=== PATIENT | male | born 1935 | race Caucasian/White ===

== ENCOUNTER 2018-01-20 20:03 | Inpatient (IN) | payer MEDICARE ==
[~2018-01-20] VITALS: Ht 177.8 cm; Wt 74.6 kg
[2018-01-20] MEDS ORDERED: SODIUM CHLORIDE 0.9% 1000ML 1,000 ML IV STA (20:43)
[2018-01-20] MEDS ORDERED: ACETAMINOPHEN 325 MG TAB PO ONE (20:45)
[2018-01-20 21:00] LABS: BASOPHILS % 0.3 % (0.0-1.0); EOSINOPHILS # (AUTO) 0.1 (0.0-0.4); EOSINOPHILS % 0.7 % (0.0-6.0); HEMATOCRIT 32.5 % (38.2-49.6); HEMOGLOBIN 10.8 g/dL (14.0-18.0); LYMPHOCYTES # (AUTO) 0.6 (1.0-3.2); LYMPHOCYTES % 8.2 % (18.0-39.1); MEAN CORPUSCULAR HEMOGLOBIN 30.9 pg (28-32); MEAN CORPUSCULAR HGB CONC 33.2 g/dL (31-35); MEAN CORPUSCULAR VOLUME 93.1 fL (81-99); MONOCYTES # (AUTO) 0.3 (0.2-0.8); NEUTROPHILS # (AUTO) 6.1 (2.1-6.9); NEUTROPHILS % 86.5 % (38.7-80.0); PLATELET COUNT 102 x10e3/uL (140-360); RED BLOOD COUNT 3.49 x10e6/uL (4.3-5.7); RED CELL DISTRIBUTION WIDTH 13.3 % (11.7-14.4)
[2018-01-20 21:11] LABS: INR 1.09; PROTHROMBIN TIME 15.1 seconds (11.9-14.5)
[2018-01-20 21:12] LABS: PARTIAL THROMBOPLASTIN TIME 33.5 seconds (23.8-35.5)
[2018-01-20 21:18] LABS: ALBUMIN 4.2 g/dL (3.5-5.0); ALBUMIN/GLOBULIN RATIO 1.5 (0.8-2.0); ANION GAP 15.2 mmol/L (8-16); CALCIUM 10.1 mg/dL (8.4-10.2); CREATININE, SERUM 1.81 mg/dL (0.72-1.25); POTASSIUM 4.2 mmol/L (3.5-5.1)
[2018-01-20 22:30] LABS: CLARITY,URINE HAZY (CLEAR); COLOR,URINE RED (YELLOW)
[2018-01-20] MEDS ORDERED: CEFTRIAXONE SOD 1 GM VIAL IV ONE (22:30)
[2018-01-20 22:31] LABS: KETONES,URINE NEGATIVE (NEGATIVE); LEUKOCYTE ESTERASE ,URINE TRACE (NEGATIVE); NITRITE,URINE NEGATIVE (NEGATIVE); PROTEIN,URINE DIPSTICK 3+ (NEGATIVE)
[2018-01-20 22:32] LABS: BACTERIA,URINE FEW /HPF; BILIRUBIN,URINE NEGATIVE (NEGATIVE); EPITHELIAL CELLS,URINE FEW /LPF; RBC,URINE >50 /HPF (0-5); URINE UROBILINOGEN 0.2 mg/dL (0.2 - 1)
--- NOTE | 2018-01-20 23:28 | Diagnostic Imaging Report ---
EXAM: CT Abdomen and Pelvis WITHOUT contrast INDICATION: Hematuria COMPARISON: None. TECHNIQUE: Abdomen and pelvis were scanned utilizing a multidetector helical scanner from the lung base to the pubic symphysis without administration of IV contrast. Absence of intravenous contrast decreases sensitivity for detection of focal lesions and vascular pathology. Coronal and sagittal reformations were obtained. Stone protocol is performed. IV CONTRAST: None. ORAL CONTRAST: Water RADIATION DOSE: Total DLP: 344.27 mGy*cm Estimated effective dose: (DLP x 0.015 x size factor) mSv COMPLICATIONS: None FINDINGS: LINES and TUBES: None. LOWER THORAX: Mild centrilobular emphysema noted. HEPATOBILIARY: No focal hepatic lesions. No biliary ductal dilation. GALLBLADDER: No radio-opaque stones or sludge. No wall thickening. SPLEEN: Moderate splenomegaly. PANCREAS: No focal masses or ductal dilatation. ADRENALS: No adrenal nodules KIDNEYS/URETERS: No hydronephrosis. No cystic or solid mass lesions. No stones. GI TRACT: No abnormal distention, wall thickening, or evidence of bowel obstruction. There are diverticula within the colon without evidence of diverticulitis. Appendix is not clearly identified. There is however no fat stranding or adenopathy in the right lower quadrant to suggest appendicitis. PELVIC ORGANS/BLADDER: There is severe prostatomegaly with size measuring 10.6 x 0.7 x 7 cm with severe mass effect on the bladder trigone. The bladder contains at least one right lateral diverticulum with evidence of hyper densities within the diverticulum and left lateral dependent portion of the bladder suggestive of blood products LYMPH NODES: No lymphadenopathy. VESSELS: There is mild atherosclerotic disease in the aorta and major arterial branches. PERITONEUM / RETROPERITONEUM: No free air or fluid. BONES: There are degenerative changes in the lumbar spine. SOFT TISSUES: Small fat and small bowel containing right indirect inguinal hernia. IMPRESSION: 1. Severe prostatomegaly with evidence of blood products in the urinary bladder. 2. Moderate in size right bladder diverticulum measuring 4.3 cm in maximum dimension. 3. Diverticulosis without evidence of diverticulitis of the sigmoid colon. 4. Splenomegaly. 5. Mild emphysema. 6. Small bowel and fat containing right indirect inguinal hernia Signed by: Dr. Dm Santos M.D. on 01/20/2018 11:24 PM
[2018-01-21] MEDS ORDERED: LOSARTAN POTASS50 MG PO (00:07)
[2018-01-21] MEDS ORDERED: ELIQUIS PO (00:07)
[2018-01-21] MEDS ORDERED: ATENOLOL50 MG PO (00:07)
[2018-01-21] MEDS ORDERED: FUROSEMIDE20 MG PO (00:07)
[2018-01-21] MEDS ORDERED: TAMSULOSIN HCL0.4 MG PO (00:07)
[2018-01-21] MEDS ORDERED: ATORVASTATIN CA20 MG PO (00:07)
[2018-01-21] MEDS ORDERED: AVODART0.5 MG PO (00:07)
[2018-01-21] MEDS ORDERED: ONDANSETRON HCL INJ 2 MG/ML VIAL IV PRN (00:45)
[2018-01-21] MEDS ORDERED: SODIUM CHLORIDE 0.9% 1000ML 1,000 ML IV ONE (00:45)
[2018-01-21] MEDS ORDERED: ASPIR 8181 MG PO (00:47)
[2018-01-21] MEDS: ACETAMINOPHEN 1000 MG/100 ML IV PRN ×2 (06:06→17:46)
[2018-01-21 06:20] LABS: BASOPHILS % 0.1 % (0.0-1.0); LYMPHOCYTES # (AUTO) 0.5 (1.0-3.2); LYMPHOCYTES % 6.8 % (18.0-39.1); MEAN CORPUSCULAR HEMOGLOBIN 31.2 pg (28-32); MEAN CORPUSCULAR HGB CONC 33.3 g/dL (31-35); MEAN CORPUSCULAR VOLUME 93.5 fL (81-99); MONOCYTES # (AUTO) 0.2 (0.2-0.8); MONOCYTES % 3.1 % (4.4-11.3); NEUTROPHILS % 89.7 % (38.7-80.0); PLATELET COUNT 95 x10e3/uL (140-360); RED BLOOD COUNT 3.21 x10e6/uL (4.3-5.7); RED CELL DISTRIBUTION WIDTH 13.3 % (11.7-14.4)
[2018-01-21 06:45] LABS: ALBUMIN 3.6 g/dL (3.5-5.0); ALBUMIN/GLOBULIN RATIO 1.4 (0.8-2.0); ANION GAP 13.2 mmol/L (8-16); CALCIUM 9.4 mg/dL (8.4-10.2); CREATININE, SERUM 1.62 mg/dL (0.72-1.25); POTASSIUM 4.2 mmol/L (3.5-5.1)
[2018-01-21 09:30] LABS: LYMPHOCYTES % (MANUAL) 4 % (19-48); MONOCYTES % (MANUAL) 2 % (3.4-9.0); NEUTROPHILS % (MANUAL) 94 % (40-74); PLATELET ESTIMATE MODERATELY DECREASED; PLATELET MORPHOLOGY COMMENT NORMAL; RBC MORPHOLOGY COMMENT NORMAL
[2018-01-21] MEDS: CEFTRIAXONE SOD 1 GM VIAL IV SCH ×2 (11:34→21:55)
--- OUTSIDE RECORDS SUMMARY | 2018-01-21 14:26 | XMS REPORT | Clinical Summary ---
Author Author TOMA [facility]fireBo[facility] CenterZartis [facility] HospitalPercelloWashington [facility] Address Unknown Phone Unavailable Care Team Providers Care Employment Case Manager Name Role Phone PCP Unavailable Allergies No Known Allergies Current Medications Prescription Sig. Disp. Refills Start End Date Status Date amiodarone (PACERONE) 200 Take 200 mg by mouth 2 Active MG tablet (two) times daily. apixaban (ELIQUIS) 2.5 mg Take 2.5 mg by mouth 2 Active Tab tablet (two) times daily. aspirin 81 MG EC tablet Take 81 mg by mouth Active daily. atenolol (TENORMIN) 50 MG Take 50 mg by mouth 2 Active tablet (two) times daily. atorvastatin (LIPITOR) 20 Take 20 mg by mouth Active MG tablet daily. azelastine (ASTELIN) 137 2 sprays by Nasal route 2 Active mcg (0.1 %) nasal spray (two) times daily Use in each nostril as directed . dutasteride (AVODART) 0.5 Take 0.5 mg by mouth Active mg capsule daily. fluticasone (FLONASE) 50 2 sprays by Nasal route Active mcg/actuation nasal spray daily. losartan (COZAAR) 50 MG Take 50 mg by mouth 2 Active tablet (two) times daily. multivitamin per tablet Take 1 tablet by mouth Active daily. 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 -- [facility] -- 07/01/2017 Encounters Date Type Specialty Care Team Description [facility] after 01[facility]19[facility]2017 Social History Tobacco Use Types Packs/Day Years Used Date Never Smoker Smokeless Tobacco: Never Used Alcohol Use Drinks/Week oz/Week Comments No Sex Assigned at Date Recorded Not on file Last Filed Vital Signs Vital Sign Reading Time Taken Blood Pressure 178/72 07/01/2017 10:00 AM CDT Pulse 44 07/01/2017 10:00 AM CDT Temperature 37.1 C (98.7 F) 07/01/2017 7:18 AM CDT Respiratory Rate 16 07/01/2017 10:00 AM CDT Oxygen Saturation 100% 07/01/2017 9:31 AM CDT Inhaled Oxygen - - Concentration Weight 78 kg (172 lb) 07/01/2017 7:18 AM CDT Height 180.3 cm (5' 11") 07/01/2017 7:18 AM CDT Body Mass Index 23.99 07/01/2017 7:18 AM CDT Plan of Treatment Not on file Results * EKG-SCANNED (07/02/2017 3:10 PM) * RHYTHM STRIP - SCAN (07/02/2017 3:10 PM) * ECG 12 lead (07/01/2017 9:04 AM) Specimen Performing Laboratory GE MUSE Narrative Ventricular Rate 39 BPM Atrial Rate 39 BPM P-R Interval 212 ms QRS Duration 94 ms Q-T Interval 522 ms QTC Calculation(Bazett) 420 ms P [place] 105 degrees R [place] 75 degrees T [place] 55 degrees Marked sinus bradycardia with 1st degree A-V block with Premature atrial complexes T wave inversion in V1-V2, may indicate postischemic changes Abnormal ECG When compared with ECG of 13-DEC-2003 02:46, Premature atrial complexes are now Present Non-specific change in ST segment in Anterior leads T waves are now negative in V2 QT has shortened Confirmed by MD NANDO, COLLEEN ([id number]) on 07/02/2017 6:55:17 AM Procedure Note Interface, External Ris In - 07/02/2017 6:55 AM CDT Ventricular Rate 39 BPM Atrial Rate 39 BPM P-R Interval 212 ms QRS Duration 94 ms Q-T Interval 522 ms QTC Calculation(Bazett) 420 ms P [place] 105 degrees R [place] 75 degrees T [place] 55 degrees Marked sinus bradycardia with 1st degree A-V block with Premature atrial complexes T wave inversion in V1-V2, may indicate postischemic changes Abnormal ECG When compared with ECG of 13-DEC-2003 02:46, Premature atrial complexes are now Present Non-specific change in ST segment in Anterior leads T waves are now negative in V2 QT has shortened Confirmed by MD NANDO, COLLEEN ([id number]) on 07/02/2017 6:55:17 AM after 01/19/2017
--- OUTSIDE RECORDS SUMMARY | 2018-01-21 14:29 | XMS REPORT | Clinical Summary ---
Author Author TOMA [facility]licationVal[facility]WePo[facility] Address Unknown Phone Unavailable Care Team Providers Care Candy Vendor Name Role Phone PCP Unavailable Allergies No [...] persistent atrial fibrillation-flutter to sinus bradycardia -- [facility] -- 07/01/2017 Encounters Date Type Specialty Care Team Description [facility] after 01/20/2017 Social History Tobacco Use Types Packs/Day Years [...] 522 ms QTC Calculation(Bazett) 420 ms P [place] 105 degrees R [place] 75 degrees T [place] 55 degrees Marked sinus bradycardia with 1st [...] 522 ms QTC Calculation(Bazett) 420 ms P [place] 105 degrees R [place] 75 degrees T [place] 55 degrees Marked sinus bradycardia with 1st [...] COLLEEN ([id number]) on 07/02/2017 6:55:17 AM after 01/20/2017
--- OUTSIDE RECORDS SUMMARY | 2018-01-21 14:29 | XMS REPORT ---
Author Author [facility] Address Unknown Phone Unavailable Care Team Providers Care Bushel Worker Name Role Phone Amanda SANCHES Unavailable Unavailable Problems This patient has no known problems. Allergies, Adverse Reactions, Alerts This patient has no known allergies or adverse reactions. Medications This patient has no known medications. Results Test Description Test Time Test Comments Text Results Atomic Results Result Comments CT ABDOMEN/PELVIS WO 2018-01-20 23:18:00 [place] [address] Patient Name: LUIS HARRIS JR MR #: [id number] : 1935 Age/Sex: 82/M Req #: [id number] Adm Physician: Ordered by: MONO JUÁREZ Report #: [id number] Location: ER Room/Bed: Procedure: [id number] CT/CT ABDOMEN/PELVIS WO Exam Date: 01/20/18 Exam Time: 6 REPORT STATUS: Signed EXAM: CT Abdomen and Pelvis WITHOUT contrast INDICATION: Hematuria COMPARISON: None. TECHNIQUE: Abdomen and pelvis were scanned utilizing a multidetector helical scanner from the lung base to the pubic symphysis without administration of IV contrast. Absence of intravenous contrast decreases sensitivity for detection of focal lesions and vascular pathology. Coronal and sagittal reformations were obtained. Stone protocol is performed. IV CONTRAST: None. ORAL CONTRAST: Water RADIATION DOSE: Total DLP: 344.27 mGy*cm Estimated effective dose: (DLP x 0.015 x size factor) mSv COMPLICATIONS: None FINDINGS: LINES and TUBES: None. LOWER THORAX: Mild centrilobular emphysema noted. HEPATOBILIARY: No focal hepatic lesions. No biliary d uctal dilation. GALLBLADDER: No radio-opaque stones or sludge. No wall thickening. SPLEEN: Moderate splenomegaly. PANCREAS: No focal masses or ductal dilatation. ADRENALS: No adrenal nodules KIDNEYS/URETERS: No hydronephrosis. No cystic or solid mass lesions. No stones. GI TRACT: No abnormal distention, wall thickening, or evidence of bowel obstruction. There are diverticula within the colon without evidence of diverticulitis. Appendix is not clearly identified. There is however no fat stranding or adenopathy in the right lower quadrant to suggest appendicitis. PELVIC ORGANS/BLADDER: There is severe prostatomegaly with size measuring 10.6 x 0.7 x 7 cm with severe mass effect on the bladder trigone. The bladder contains at least one right lateral diverticulum with evidence of hyper densities within the diverticulum and left lateral dependent portion of the bladder suggestive of blood products LYMPH NODES: No lymphadenopathy. VESSELS: There is mild atherosclerotic disease in the aorta and major arterial branches. PERITONEUM / RETROPERITONEUM: No free air or fluid. BONES: There are degenerative changes in the lumbar spine. SOFT TISSUES: Small fat and small bowel containing right indirect inguinal hernia. IMPRESSION: 1. Severe prostatomegaly with evidence of blood products in the urinary bladder. 2. Moderate in size right bladder diverticulum measuring 4.3 cm in maximum dimension. 3. Diverticulosis without evidence of diverticulitis of the sigmoid colon. 4. Splenomegaly. 5. Mild emphysema. 6. Small bowel and fat containing right indirect inguinal hernia Signed by: Dr. Dm Santos M.D. on 01/20/2018 11:24 PM Dictated By: DM MULLIGAN MD 23 Transcribed By: JULIANNE on 01/20/18 COPY TO: MONO JUÁREZ
[2018-01-21 16:00] VITALS: BP 151/64
[2018-01-21 16:55] VITALS: BP 151/64
[2018-01-21 17:00] VITALS: BP 151/64
[2018-01-21 20:38] VITALS: BP 127/60
[2018-01-21] MEDS: ATORVASTATIN 20 MG TAB PO SCH (21:55)
[2018-01-21 23:40] VITALS: BP 134/61
[2018-01-22] VITALS (7 sets, daily range): BP systolic 114–157; BP diastolic 54–67
[2018-01-22 05:58] LABS: BASOPHILS % 0.2 % (0.0-1.0); EOSINOPHILS # (AUTO) 0.1 (0.0-0.4); EOSINOPHILS % 1.4 % (0.0-6.0); HEMATOCRIT 26.7 % (38.2-49.6); HEMOGLOBIN 8.8 g/dL (14.0-18.0); LYMPHOCYTES # (AUTO) 1.3 (1.0-3.2); LYMPHOCYTES % 25.7 % (18.0-39.1); MEAN CORPUSCULAR HEMOGLOBIN 30.6 pg (28-32); MEAN CORPUSCULAR VOLUME 92.7 fL (81-99); MONOCYTES # (AUTO) 0.4 (0.2-0.8); MONOCYTES % 7.8 % (4.4-11.3); NEUTROPHILS # (AUTO) 3.2 (2.1-6.9); NEUTROPHILS % 64.7 % (38.7-80.0); PLATELET COUNT 84 x10e3/uL (140-360); RED BLOOD COUNT 2.88 x10e6/uL (4.3-5.7); RED CELL DISTRIBUTION WIDTH 13.6 % (11.7-14.4)
[2018-01-22 06:22] LABS: CALCIUM 9.2 mg/dL (8.4-10.2); CREATININE, SERUM 1.44 mg/dL (0.72-1.25)
[2018-01-22] MEDS: ATENOLOL 50 MG TAB PO SCH (09:45)
[2018-01-22] MEDS: TAMSULOSIN HCL 0.4 MG CAP PO SCH (09:45)
[2018-01-22] MEDS: DUTASTERIDE 0.5 MG CAP PO SCH (09:45)
[2018-01-22] MEDS: CEFTRIAXONE SOD 1 GM VIAL IV SCH ×2 (09:45→21:03)
[2018-01-22] MEDS ORDERED: FLONASE INH (09:59)
[2018-01-22] MEDS ORDERED: AZELASTINE 0.1% INH (09:59)
[2018-01-22] MEDS ORDERED: MIRALAX17 GM PO (10:01)
[2018-01-22] MEDS ORDERED: MULTI-VITAMIN1 EACH PO (10:01)
[2018-01-22] MEDS: AZELASTINE HCL 137 MCG NASAL SPRAY NS SCH (21:03)
[2018-01-22] MEDS: ATORVASTATIN 20 MG TAB PO SCH (21:03)
[2018-01-23] VITALS (7 sets, daily range): BP systolic 119–143; BP diastolic 57–75
[2018-01-23 06:01] LABS: BASOPHILS % 0.4 % (0.0-1.0); EOSINOPHILS # (AUTO) 0.2 (0.0-0.4); EOSINOPHILS % 3.2 % (0.0-6.0); HEMATOCRIT 27.9 % (38.2-49.6); HEMOGLOBIN 9.4 g/dL (14.0-18.0); LYMPHOCYTES # (AUTO) 1.3 (1.0-3.2); LYMPHOCYTES % 27.3 % (18.0-39.1); MEAN CORPUSCULAR HEMOGLOBIN 31.2 pg (28-32); MEAN CORPUSCULAR HGB CONC 33.7 g/dL (31-35); MEAN CORPUSCULAR VOLUME 92.7 fL (81-99); MONOCYTES # (AUTO) 0.4 (0.2-0.8); MONOCYTES % 8.2 % (4.4-11.3); NEUTROPHILS # (AUTO) 2.8 (2.1-6.9); NEUTROPHILS % 60.7 % (38.7-80.0); PLATELET COUNT 83 x10e3/uL (140-360); RED BLOOD COUNT 3.01 x10e6/uL (4.3-5.7); RED CELL DISTRIBUTION WIDTH 13.6 % (11.7-14.4)
[2018-01-23 06:14] LABS: ANION GAP 14.8 mmol/L (8-16); CALCIUM 9.7 mg/dL (8.4-10.2); CREATININE, SERUM 1.42 mg/dL (0.72-1.25); POTASSIUM 3.8 mmol/L (3.5-5.1)
--- NOTE | 2018-01-23 07:55 | Consultation ---
DATE OF CONSULTATION: January 21, 2018 UROLOGY CONSULTATION REASON FOR CONSULTATION: Gross hematuria. HISTORY OF PRESENT ILLNESS: Moses Khan Jr., is an 82-year-old man who has had a previous history of hematuria. The patient has also had a previous transurethral resection of prostate for BPH. The patient is on both Eliquis and aspirin for atrial fibrillation. Six months earlier, he had a cystoscopy at [facility]. The patient had gross hematuria and reported to the emergency room where he was evaluated and admitted. The patient had a history of a stone that he passed. PAST MEDICAL AND SURGICAL HISTORY 1. Coronary artery disease, status post coronary artery bypass times 1 along with mitral valve replacement. 2. Status post appendectomy. 3. Atrial fibrillation. 4. Hypercholesterolemia. CURRENT MEDICATIONS: Refer to the MAR. ALLERGIES: NAPROXEN. SOCIAL HISTORY: The patient denies smoking, ethanol or drug use. 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 FAMILY HISTORY: Noncontributory to the active urological problems. REVIEW OF SYSTEMS: As consistent above in the history of present illness and past medical history. Otherwise, negative for all systems. PHYSICAL EXAMINATION GENERAL: A relatively healthy appearing 82-year-old man lying in bed in no apparent distress. VITALS: He is currently afebrile. Vital signs are currently stable. ABDOMEN: Soft, nondistended and nontender without costovertebral angle tenderness. Kidneys not palpable. No hepatosplenomegaly. No obvious evidence of hernia. GENITOURINARY: Testes are descended bilaterally. Testes and epididymis bilaterally are nontender. The patient has a normal male phallus with normal meatus without any lesions. Digital rectal examination is deferred at the present time. For the remaining physical examination systems, please refer to the ERT sheet, as well as the admission history and physical on the chart. LABORATORY STUDIES: The patient's creatinine is 1.62. His hemoglobin is low at 10. White blood cell count is 6720 and platelets are low at 95,000. CT scan of the abdomen and pelvis reveals BPH, as well as a 4 cm bladder diverticulum. Blood clots were noted in the bladder. ASSESSMENT 1. BPH: Status post transurethral resection of prostate. 2. Gross hematuria. 3. Bladder diverticulum. 4. Anemia. 5. Chronic renal insufficiency. 6. Urinary tract infection versus just pyuria. 7. Possible prostatitis. 8. Fevers upon presentation. 9. History of kidney stone in the remote past. PLAN 1. Currently, the patient is voiding without any problem. Will try to avoid a Breaux catheter if we can at the patient's request. 2. The patient should probably have further cystoscopic examination now that he has had recurrent gross hematuria. 3. Recommend holding off on all blood thinners at the present time to be sure the patient's hematuria is fully resolved. 4. Will await urine culture and sensitivity, and adjust antibiotics accordingly. 5. Ongoing urological followup in this particular patient is a must. Objective assessment avoiding should also be undertaken. Thank you very much for involving us in the care of your patient. We will be happy to follow him along with you, as well as an outpatient. Job#: [id number] GENNA
[2018-01-23] MEDS: DUTASTERIDE 0.5 MG CAP PO SCH (09:40)
[2018-01-23] MEDS: FLUTICASONE PROPIONATE NASAL SPRAY NS SCH (09:40)
[2018-01-23] MEDS: TAMSULOSIN HCL 0.4 MG CAP PO SCH (09:40)
[2018-01-23] MEDS: ATENOLOL 50 MG TAB PO SCH (09:40)
[2018-01-23] MEDS ORDERED: PIPERACILLIN/TAZO 2.25 GM 50 ML IV SCH (12:00)
[2018-01-23] MEDS ORDERED: LEVOFLOXACIN 750MG/D5W 150ML 150 ML IV SCH ×2 (12:30→13:00)
[2018-01-23] MEDS: ATORVASTATIN 20 MG TAB PO SCH (20:58)
[2018-01-23] MEDS: AZELASTINE HCL 137 MCG NASAL SPRAY NS SCH (20:58)
[2018-01-24] VITALS (9 sets, daily range): BP systolic 101–132; BP diastolic 54–66
[2018-01-24] MEDS: TAMSULOSIN HCL 0.4 MG CAP PO SCH (09:00)
[2018-01-24] MEDS: ATENOLOL 50 MG TAB PO SCH (09:00)
[2018-01-24] MEDS: DUTASTERIDE 0.5 MG CAP PO SCH (09:00)
[2018-01-24] MEDS: FLUTICASONE PROPIONATE NASAL SPRAY NS SCH (09:16)
[2018-01-24] MEDS ORDERED: IOPAMIDOL 610MG/1ML 300 MG/ML VIAL IV ONE (11:52)
[2018-01-24] MEDS ORDERED: BELLADONNA/OPIUM 60 MG SUPP PR ONE (11:52)
[2018-01-24] MEDS ORDERED: LEVOFLOXACIN 500MG/D5W 100ML 100 ML IV ONE (12:28)
[2018-01-24] MEDS ORDERED: MORPHINE SULFATE 2 MG/ML SYR IV PRN (14:00)
[2018-01-24] MEDS ORDERED: ACETAMINOPHEN 325 MG TAB PO PRN (14:00)
[2018-01-24] MEDS ORDERED: LEVOFLOXACIN 500MG/D5W 100ML 100 ML IV SCH (14:45)
[2018-01-24] MEDS ORDERED: ONDANSETRON HCL INJ 2 MG/ML VIAL ONE (17:22)
[2018-01-24] MEDS ORDERED: PROPOFOL IV EMULSION 10 MG/ML 20 ML VIAL ONE (17:22)
[2018-01-24] MEDS ORDERED: SEVOFLURANE INHAL SOLN 250 ML PEN BTL ONE (17:22)
[2018-01-24] MEDS ORDERED: DEXAMETHASONE SOD PHOS INJ 4 MG/ML VIAL ONE (17:22)
[2018-01-24] MEDS ORDERED: LIDOCAINE HCL 2% LOCAL INJ 5 ML SDV VIAL INJ ONE (17:22)
[2018-01-24] MEDS: ATORVASTATIN 20 MG TAB PO SCH (21:25)
[2018-01-24] MEDS: AZELASTINE HCL 137 MCG NASAL SPRAY NS SCH (21:25)
[2018-01-25] VITALS (8 sets, daily range): BP systolic 103–140; BP diastolic 56–65
[2018-01-25 06:21] LABS: BASOPHILS % 0.1 % (0.0-1.0); EOSINOPHILS % 0.1 % (0.0-6.0); HEMOGLOBIN 9.3 g/dL (14.0-18.0); LYMPHOCYTES # (AUTO) 1.3 (1.0-3.2); LYMPHOCYTES % 16.7 % (18.0-39.1); MEAN CORPUSCULAR HEMOGLOBIN 30.8 pg (28-32); MEAN CORPUSCULAR HGB CONC 33.2 g/dL (31-35); MEAN CORPUSCULAR VOLUME 92.7 fL (81-99); MONOCYTES # (AUTO) 0.5 (0.2-0.8); MONOCYTES % 5.7 % (4.4-11.3); NEUTROPHILS # (AUTO) 6.1 (2.1-6.9); NEUTROPHILS % 76.9 % (38.7-80.0); PLATELET COUNT 126 x10e3/uL (140-360); RED BLOOD COUNT 3.02 x10e6/uL (4.3-5.7); RED CELL DISTRIBUTION WIDTH 13.2 % (11.7-14.4)
[2018-01-25 06:36] LABS: ANION GAP 14.3 mmol/L (8-16); CALCIUM 9.8 mg/dL (8.4-10.2); CREATININE, SERUM 1.47 mg/dL (0.72-1.25); POTASSIUM 4.3 mmol/L (3.5-5.1)
[2018-01-25] MEDS: DUTASTERIDE 0.5 MG CAP PO SCH (08:35)
[2018-01-25] MEDS: ACETAMINOPHEN/CODEINE 300MG - 30MG TAB PO PRN (08:35)
[2018-01-25] MEDS: TAMSULOSIN HCL 0.4 MG CAP PO SCH (08:35)
[2018-01-25] MEDS: ATENOLOL 50 MG TAB PO SCH (08:41)
[2018-01-25] MEDS: FLUTICASONE PROPIONATE NASAL SPRAY NS SCH (09:03)
[2018-01-25] MEDS: LEVOFLOXACIN 500MG/D5W 100ML 100 ML IV SCH (15:30)
[2018-01-25] MEDS: POLYETHYLENE GLYCOL 3350 17 GM PACK PO PRN (18:55)
[2018-01-25] MEDS: AZELASTINE HCL 137 MCG NASAL SPRAY NS SCH (21:00)
[2018-01-25] MEDS: ATORVASTATIN 20 MG TAB PO SCH (21:41)
[2018-01-26] VITALS (8 sets, daily range): BP systolic 105–134; BP diastolic 54–63
[2018-01-26] MEDS: ATENOLOL 50 MG TAB PO SCH (08:54)
[2018-01-26] MEDS: TAMSULOSIN HCL 0.4 MG CAP PO SCH (08:54)
[2018-01-26] MEDS: DUTASTERIDE 0.5 MG CAP PO SCH (08:54)
[2018-01-26] MEDS: FLUTICASONE PROPIONATE NASAL SPRAY NS SCH (09:08)
[2018-01-26] MEDS: LEVOFLOXACIN 500MG/D5W 100ML 100 ML IV SCH (15:04)
[2018-01-26] MEDS: NEOMYCIN/POLYMYXIN/BACITRACIN 15 GM TUBE TOP SCH (16:41)
[2018-01-26] MEDS: AZELASTINE HCL 137 MCG NASAL SPRAY NS SCH (21:00)
[2018-01-26] MEDS: ATORVASTATIN 20 MG TAB PO SCH (21:07)
[2018-01-27] VITALS (8 sets, daily range): BP systolic 108–157; BP diastolic 66–76
[2018-01-27 05:38] LABS: BASOPHILS % 0.3 % (0.0-1.0); EOSINOPHILS # (AUTO) 0.2 (0.0-0.4); HEMATOCRIT 29.1 % (38.2-49.6); HEMOGLOBIN 9.6 g/dL (14.0-18.0); LYMPHOCYTES % 32.2 % (18.0-39.1); MEAN CORPUSCULAR HEMOGLOBIN 30.4 pg (28-32); MEAN CORPUSCULAR VOLUME 92.1 fL (81-99); MONOCYTES # (AUTO) 0.4 (0.2-0.8); MONOCYTES % 6.2 % (4.4-11.3); NEUTROPHILS # (AUTO) 3.7 (2.1-6.9); PLATELET COUNT 127 x10e3/uL (140-360); RED BLOOD COUNT 3.16 x10e6/uL (4.3-5.7); RED CELL DISTRIBUTION WIDTH 13.2 % (11.7-14.4)
[2018-01-27 05:49] LABS: INR 1.02; PROTHROMBIN TIME 14.3 seconds (11.9-14.5)
[2018-01-27 05:50] LABS: PARTIAL THROMBOPLASTIN TIME 32.4 seconds (23.8-35.5)
[2018-01-27 05:57] LABS: ANION GAP 14.3 mmol/L (8-16); CALCIUM 9.8 mg/dL (8.4-10.2); CREATININE, SERUM 1.48 mg/dL (0.72-1.25); POTASSIUM 4.3 mmol/L (3.5-5.1)
[2018-01-27 06:13] LABS: THYROID STIMULATING HORMONE 1.563 uIU/mL (0.350-4.940)
[2018-01-27] MEDS: NEOMYCIN/POLYMYXIN/BACITRACIN 15 GM TUBE TOP SCH ×2 (09:00→17:00)
[2018-01-27] MEDS: DUTASTERIDE 0.5 MG CAP PO SCH (09:55)
[2018-01-27] MEDS: FLUTICASONE PROPIONATE NASAL SPRAY NS SCH (09:55)
[2018-01-27] MEDS ORDERED: NEOMYCIN/POLYMYX/BACITR OINT 0.9 GM PKT ONE (10:44)
[2018-01-27] MEDS ORDERED: SODIUM CHLORIDE 0.9% 250ML 250 ML ONE (14:46)
[2018-01-27] MEDS: LEVOFLOXACIN 500MG/D5W 100ML 100 ML IV SCH (15:00)
[2018-01-27] MEDS: POLYETHYLENE GLYCOL 3350 17 GM PACK PO PRN (15:01)
[2018-01-27] MEDS: AZELASTINE HCL 137 MCG NASAL SPRAY NS SCH (20:19)
[2018-01-27] MEDS: TAMSULOSIN HCL 0.4 MG CAP PO SCH (20:20)
[2018-01-27] MEDS: ATORVASTATIN 20 MG TAB PO SCH (20:20)
[2018-01-28] VITALS (8 sets, daily range): BP systolic 111–125; BP diastolic 56–71
[2018-01-28] MEDS ORDERED: IOPAMIDOL 610MG/1ML 300 MG/ML VIAL IV ONE (06:30)
[2018-01-28] MEDS ORDERED: METHYLENE BLUE 1% INJ 10 ML VIAL INJ ONE (08:09)
[2018-01-28] MEDS ORDERED: BELLADONNA/OPIUM 60 MG SUPP PR ONE (08:52)
[2018-01-28] MEDS: DUTASTERIDE 0.5 MG CAP PO SCH (09:00)
[2018-01-28] MEDS: FLUTICASONE PROPIONATE NASAL SPRAY NS SCH (09:00)
[2018-01-28] MEDS: NEOMYCIN/POLYMYXIN/BACITRACIN 15 GM TUBE TOP SCH ×2 (12:13→16:38)
[2018-01-28] MEDS: ACETAMINOPHEN/CODEINE 300MG - 30MG TAB PO PRN ×3 (12:13→20:38)
[2018-01-28] MEDS: LEVOFLOXACIN 500MG/D5W 100ML 100 ML IV SCH (15:26)
[2018-01-28] MEDS ORDERED: FENTANYL CITRATE/PF 100MCG/2 ML INJ ONE (19:05)
[2018-01-28] MEDS ORDERED: ONDANSETRON HCL INJ 2 MG/ML VIAL ONE (19:17)
[2018-01-28] MEDS ORDERED: EPHEDRINE SULFATE INJ 50 MG/10 ML SYR ONE (19:17)
[2018-01-28] MEDS ORDERED: PROPOFOL IV EMULSION 10 MG/ML 20 ML VIAL ONE (19:17)
[2018-01-28] MEDS ORDERED: SEVOFLURANE INHAL SOLN 250 ML PEN BTL ONE (19:17)
[2018-01-28] MEDS ORDERED: LIDOCAINE HCL 2% LOCAL INJ 5 ML SDV VIAL INJ ONE (19:17)
[2018-01-28] MEDS ORDERED: DEXAMETHASONE SOD PHOS INJ 4 MG/ML VIAL ONE (19:17)
[2018-01-28] MEDS: AZELASTINE HCL 137 MCG NASAL SPRAY NS SCH (20:38)
[2018-01-28] MEDS: ATORVASTATIN 20 MG TAB PO SCH (20:38)
[2018-01-28] MEDS: TAMSULOSIN HCL 0.4 MG CAP PO SCH (20:38)
[2018-01-29] VITALS (9 sets, daily range): BP systolic 103–129; BP diastolic 54–68
[2018-01-29] MEDS: ACETAMINOPHEN/CODEINE 300MG - 30MG TAB PO PRN ×4 (00:40→23:21)
[2018-01-29 06:15] LABS: BASOPHILS % 0.2 % (0.0-1.0); EOSINOPHILS # (AUTO) 0.1 (0.0-0.4); EOSINOPHILS % 0.7 % (0.0-6.0); HEMATOCRIT 27.8 % (38.2-49.6); HEMOGLOBIN 9.3 g/dL (14.0-18.0); MEAN CORPUSCULAR HEMOGLOBIN 30.9 pg (28-32); MEAN CORPUSCULAR HGB CONC 33.5 g/dL (31-35); MEAN CORPUSCULAR VOLUME 92.4 fL (81-99); MONOCYTES # (AUTO) 0.6 (0.2-0.8); MONOCYTES % 6.2 % (4.4-11.3); NEUTROPHILS # (AUTO) 7.6 (2.1-6.9); NEUTROPHILS % 73.5 % (38.7-80.0); PLATELET COUNT 163 x10e3/uL (140-360); RED BLOOD COUNT 3.01 x10e6/uL (4.3-5.7); RED CELL DISTRIBUTION WIDTH 13.4 % (11.7-14.4)
[2018-01-29 06:47] LABS: CALCIUM 9.5 mg/dL (8.4-10.2); CREATININE, SERUM 1.64 mg/dL (0.72-1.25)
[2018-01-29] MEDS: FLUTICASONE PROPIONATE NASAL SPRAY NS SCH (08:47)
[2018-01-29] MEDS: ATENOLOL 50 MG TAB PO SCH (08:47)
[2018-01-29] MEDS: DUTASTERIDE 0.5 MG CAP PO SCH (08:47)
[2018-01-29] MEDS: NEOMYCIN/POLYMYXIN/BACITRACIN 15 GM TUBE TOP SCH ×2 (09:00→17:06)
[2018-01-29] MEDS: LEVOFLOXACIN 500MG/D5W 100ML 100 ML IV SCH (14:44)
[2018-01-29] MEDS: TAMSULOSIN HCL 0.4 MG CAP PO SCH (20:46)
[2018-01-29] MEDS: ATORVASTATIN 20 MG TAB PO SCH (20:46)
[2018-01-29] MEDS: AZELASTINE HCL 137 MCG NASAL SPRAY NS SCH (20:46)
[2018-01-30] VITALS (7 sets, daily range): BP systolic 104–111; BP diastolic 55–64
--- NOTE | 2018-01-30 03:14 | Progress Note ---
DATE: January 29, 2018 INTERNAL MEDICINE PROGRESS NOTE This is coverage for Dr. Haris Salazar. SUBJECTIVE: Mr. Khan was seen and examined at bedside. He continues to have mildly pink urine, but it is better. He remains on bladder irrigation and Breaux is in place. Creatinine is still slightly high, slightly higher than yesterday even. He is tolerating his oral diet. REVIEW OF SYSTEMS: No headaches, no rash. OBJECTIVE: VITAL SIGNS: Afebrile, vital signs noted per electronic record. GENERAL: In no acute distress, alert and calm. HEENT: Normocephalic, atraumatic. NECK: Supple. Throat midline. LUNGS: Bilateral air entry, clear. CARDIOVASCULAR: S1, S2. No murmurs, rubs, or gallops. ABDOMEN: Soft, mostly nontender. EXTREMITIES: No clubbing, no cyanosis, there is no edema. INTEGUMENT: No rash, no purpura. LABS: 5.0 potassium, 27 BUN, 1.6 creatinine. 10 white count, 28 hematocrit, 163,000 platelets. IMPRESSIONS AND PLAN: 1. Chronic kidney injury, multifactorial including obstructive. 2. Benign prostatic hypertrophy. 3. Postoperative state, status post cystoscopy and retrograde pyelograms. 4. Prostatitis, Pseudomonas urinary tract infection. 5. Postoperative state, status post transurethral resection of prostate. At this time, Mr. Khan will continue inpatient stay. He remains with Breaux in place. He is to continue on flushing as the urine is looking much better. Repeat intermittent blood work to ensure creatinine stays stable and will repeat blood work in a couple of days. Continue diet. Continue other supportive therapy and antibiotics for this Pseudomonas urinary tract infection. Job#: [id number]
[2018-01-30] MEDS: NEOMYCIN/POLYMYXIN/BACITRACIN 15 GM TUBE TOP SCH ×2 (09:15→17:14)
[2018-01-30] MEDS: FLUTICASONE PROPIONATE NASAL SPRAY NS SCH (09:15)
[2018-01-30] MEDS: ACETAMINOPHEN/CODEINE 300MG - 30MG TAB PO PRN ×2 (09:15→18:38)
[2018-01-30] MEDS: DUTASTERIDE 0.5 MG CAP PO SCH (09:15)
[2018-01-30] MEDS: ATENOLOL 50 MG TAB PO SCH (09:15)
[2018-01-30] MEDS: BELLADONNA/OPIUM 60 MG SUPP PR PRN (09:15)
[2018-01-30] MEDS ORDERED: SODIUM CHLORIDE 0.9% 50ML 50 ML ONE (14:44)
[2018-01-30] MEDS: LEVOFLOXACIN 500MG/D5W 100ML 100 ML IV SCH (15:00)
[2018-01-30] MEDS: TAMSULOSIN HCL 0.4 MG CAP PO SCH (20:36)
[2018-01-30] MEDS: AZELASTINE HCL 137 MCG NASAL SPRAY NS SCH (20:36)
[2018-01-30] MEDS: ATORVASTATIN 20 MG TAB PO SCH (20:36)
[2018-01-30] MEDS: POLYETHYLENE GLYCOL 3350 17 GM PACK PO PRN (20:36)
[2018-01-31] VITALS (7 sets, daily range): BP systolic 97–121; BP diastolic 55–61
--- NOTE | 2018-01-31 02:19 | Progress Note ---
DATE: January 30, 2018 INTERNAL MEDICINE PROGRESS NOTE Coverage for Dr. Salazar. SUBJECTIVE: Mr. Khan was seen and examined at bedside. A few clots in his Breaux. He stills remains on flushing of his Breaux. There is some pain coming from his urethra and prostate area. He is eating well. He slept okay and no nausea, no vomiting. He did have no bowel movements, however, yet. REVIEW OF SYSTEMS: No headaches, no emesis. OBJECTIVE: VITAL SIGNS: Afebrile, vital signs noted per electronic record. GENERAL: In no acute distress, alert and calm in bed. HEENT: Normocephalic, atraumatic. NECK: Supple. Throat midline. LUNGS: Bilateral air entry, clear. CARDIOVASCULAR: S1, S2. No murmurs, rubs, or gallops. ABDOMEN: Soft, nontender. EXTREMITIES: No clubbing, no cyanosis, there is no edema. INTEGUMENT: No rash, no purpura. LABS: 5.0 potassium, 27 BUN, 1.6 creatinine. IMPRESSIONS AND PLAN: 1. Postoperative state, status post transurethral resection of prostate, cystoscopy, and retrograde pyelograms. 2. Prostatitis, Pseudomonas urinary tract infection. 3. Chronic kidney disease, rule out acute kidney injury. 4. Coronary artery disease, status post coronary artery bypass graft and mitral valve replacement. 5. Atrial fibrillation. 6. Hyperlipidemia. Continue flushing. Await for resolution of the blood. Once these are stable, we have to consider resuming cardiac medicines in the future. For now, continue to hold off on blood thinners. Await further bowel movements. Repeat potassium and ensure the creatinine remains stable. Job#: [id number]
[2018-01-31 05:55] LABS: BASOPHILS % 0.3 % (0.0-1.0); EOSINOPHILS # (AUTO) 0.3 (0.0-0.4); HEMATOCRIT 26.9 % (38.2-49.6); HEMOGLOBIN 8.9 g/dL (14.0-18.0); LYMPHOCYTES # (AUTO) 2.1 (1.0-3.2); LYMPHOCYTES % 31.8 % (18.0-39.1); MEAN CORPUSCULAR HEMOGLOBIN 30.5 pg (28-32); MEAN CORPUSCULAR HGB CONC 33.1 g/dL (31-35); MEAN CORPUSCULAR VOLUME 92.1 fL (81-99); MONOCYTES # (AUTO) 0.5 (0.2-0.8); NEUTROPHILS # (AUTO) 3.6 (2.1-6.9); NEUTROPHILS % 56.4 % (38.7-80.0); PLATELET COUNT 138 x10e3/uL (140-360); RED BLOOD COUNT 2.92 x10e6/uL (4.3-5.7); RED CELL DISTRIBUTION WIDTH 13.2 % (11.7-14.4)
[2018-01-31 06:27] LABS: ANION GAP 10.1 mmol/L (8-16); CALCIUM 9.8 mg/dL (8.4-10.2); CREATININE, SERUM 1.82 mg/dL (0.72-1.25); MAGNESIUM 2.1 MG/DL (1.3-2.1); PHOSPHORUS 3.5 MG/DL (2.3-4.7); POTASSIUM 5.1 mmol/L (3.5-5.1)
[2018-01-31] MEDS: DUTASTERIDE 0.5 MG CAP PO SCH (09:12)
[2018-01-31] MEDS: FLUTICASONE PROPIONATE NASAL SPRAY NS SCH (09:12)
[2018-01-31] MEDS: ATENOLOL 50 MG TAB PO SCH (09:12)
[2018-01-31] MEDS: NEOMYCIN/POLYMYXIN/BACITRACIN 15 GM TUBE TOP SCH ×2 (09:12→17:00)
[2018-01-31] MEDS: ACETAMINOPHEN/CODEINE 300MG - 30MG TAB PO PRN (10:05)
[2018-01-31] MEDS: LEVOFLOXACIN 500MG/D5W 100ML 100 ML IV SCH (15:30)
[2018-01-31] MEDS: ATORVASTATIN 20 MG TAB PO SCH (21:34)
[2018-01-31] MEDS: TAMSULOSIN HCL 0.4 MG CAP PO SCH (21:34)
[2018-01-31] MEDS: AZELASTINE HCL 137 MCG NASAL SPRAY NS SCH (21:34)
[2018-02-01] VITALS: BP 100/56
[2018-02-01 00:30] VITALS: BP 102/59
--- NOTE | 2018-02-01 04:25 | Progress Note ---
DATE: January 31, 2018 INTERNAL MEDICINE PROGRESS NOTE Coverage for Dr. Salazar. SUBJECTIVE: Mr. Khan was seen and examined at bedside. Breaux in place with mildly bloody output after he walked around. He told me it was clearing out before. He walked in the hallway. Bowel movement was achieved. He is eating well. REVIEW OF SYSTEMS: There is no headache and no bleeding. OBJECTIVE VITAL SIGNS: Afebrile, vital signs noted per electronic record. GENERAL: In no acute distress, alert and calm. HEENT: Normocephalic, atraumatic. NECK: Supple. Throat midline. LUNGS: Bilateral air entry, clear. CARDIOVASCULAR: S1 and S2. No murmurs, rubs, or gallops. ABDOMEN: Soft and nontender. EXTREMITIES: No clubbing, no cyanosis, and there is no edema. INTEGUMENT: No rash and no purpura. LABS: Potassium 5.1, 28 BUN, and 1.8 creatinine. White count 6, 27 hematocrit, and 138 platelets. IMPRESSION AND PLAN 1. Hematuria, recurrent. 2. Status post transurethral resection of prostate, postoperative. 3. Benign prostatic hypertrophy. 4. Prostatitis, Pseudomonas urinary tract infection. 5. Chronic kidney disease, history of chronic kidney disease. 6. Coronary artery disease, status post coronary artery bypass graft. 7. Atrial fibrillation. Continue flushing Breaux intermittently. Continue to maintain hydration. Patient will have Breaux maintained in place. Continue to allow him to ambulate. Follow him on oral diet as well as ensuring bowel movements to be continued. Continue Levaquin for the urinary tract infection. Repeat creatinine in morning given the mild increased trend. Job#: [id number] BUKCY
[2018-02-01 06:11] LABS: ANION GAP 10.3 mmol/L (8-16); CALCIUM 9.4 mg/dL (8.4-10.2); CREATININE, SERUM 1.88 mg/dL (0.72-1.25); MAGNESIUM 2.2 MG/DL (1.3-2.1); PHOSPHORUS 3.7 MG/DL (2.3-4.7); POTASSIUM 4.3 mmol/L (3.5-5.1)
[2018-02-01 08:29] VITALS: BP 107/57
[2018-02-01] MEDS: DUTASTERIDE 0.5 MG CAP PO SCH (08:50)
[2018-02-01] MEDS: FLUTICASONE PROPIONATE NASAL SPRAY NS SCH (08:50)
[2018-02-01] MEDS: NEOMYCIN/POLYMYXIN/BACITRACIN 15 GM TUBE TOP SCH ×2 (08:51→16:50)
[2018-02-01] MEDS: ATENOLOL 50 MG TAB PO SCH (08:51)
--- NOTE | 2018-02-01 09:26 | Progress Note ---
DATE: February 01, 2018 SUBJECTIVE: The patient was seen today for Dr. Salazar. He still has some hematuria, although it has improved. He does not complain of fevers or abdominal pain. There is no nausea or vomiting. PHYSICAL EXAMINATION VITAL SIGNS: The patient is afebrile. The vital signs are stable. HEENT: Shows no facial swelling or erythema. The nasal mucosa is normal. The oropharynx is normal. LYMPHATIC: Shows no submandibular, cervical or supraclavicular adenopathy. CARDIAC: Reveals a regular rate and rhythm with a normal S1 and S2. There are no murmurs or rubs. LUNGS: Auscultation of the lungs reveals clear breath sounds bilaterally. There is no wheezing. ABDOMEN: Soft, nontender. There is no rebound or guarding. : There is some blood-tinged urine coming from the Breaux. LABORATORY DATA: The BUN to creatinine ratio is 28:1.88. The other electrolytes are within normal limits. The hemoglobin is 8.9 and the platelet count is 138. PT and INR are normal. The urinalysis shows greater than 50 red blood cells. IMPRESSION 1. Prostatitis with Pseudomonas. 2. Chronic renal insufficiency. 3. Prostatic hypertrophy with transurethral prostate resection. 4. Atrial fibrillation. PLAN 1. Continue to irrigate the bladder. 2. Continue current antibiotics. 3. Repeat creatinine in the a.m., the creatinine increased slightly over the past 24 hours. 4. We will discuss with urology. Job#: [id number] TED
[2018-02-01 17:21] VITALS: BP 111/61
[2018-02-01 20:00] VITALS: BP 109/61
[2018-02-01] MEDS: AZELASTINE HCL 137 MCG NASAL SPRAY NS SCH (20:58)
[2018-02-01] MEDS: TAMSULOSIN HCL 0.4 MG CAP PO SCH (20:58)
[2018-02-01] MEDS: POLYETHYLENE GLYCOL 3350 17 GM PACK PO PRN (20:58)
[2018-02-01] MEDS: ATORVASTATIN 20 MG TAB PO SCH (20:58)
[2018-02-02] VITALS (7 sets, daily range): BP systolic 101–119; BP diastolic 53–62
[2018-02-02 06:49] LABS: BASOPHILS % 0.4 % (0.0-1.0); EOSINOPHILS # (AUTO) 0.2 (0.0-0.4); EOSINOPHILS % 4.5 % (0.0-6.0); HEMOGLOBIN 8.2 g/dL (14.0-18.0); LYMPHOCYTES # (AUTO) 1.8 (1.0-3.2); LYMPHOCYTES % 33.5 % (18.0-39.1); MEAN CORPUSCULAR HEMOGLOBIN 30.4 pg (28-32); MEAN CORPUSCULAR HGB CONC 32.8 g/dL (31-35); MEAN CORPUSCULAR VOLUME 92.6 fL (81-99); MONOCYTES # (AUTO) 0.4 (0.2-0.8); MONOCYTES % 7.1 % (4.4-11.3); NEUTROPHILS # (AUTO) 2.9 (2.1-6.9); NEUTROPHILS % 54.1 % (38.7-80.0); PLATELET COUNT 148 x10e3/uL (140-360); RED CELL DISTRIBUTION WIDTH 13.2 % (11.7-14.4)
[2018-02-02 07:02] LABS: ALBUMIN 2.9 g/dL (3.5-5.0); ALBUMIN/GLOBULIN RATIO 1.3 (0.8-2.0); ANION GAP 9.3 mmol/L (8-16); CALCIUM 9.3 mg/dL (8.4-10.2); CREATININE, SERUM 1.59 mg/dL (0.72-1.25); POTASSIUM 4.3 mmol/L (3.5-5.1)
[2018-02-02] MEDS: FLUTICASONE PROPIONATE NASAL SPRAY NS SCH (08:57)
[2018-02-02] MEDS: ATENOLOL 50 MG TAB PO SCH (08:57)
[2018-02-02] MEDS: DUTASTERIDE 0.5 MG CAP PO SCH (08:57)
[2018-02-02] MEDS: NEOMYCIN/POLYMYXIN/BACITRACIN 15 GM TUBE TOP SCH (08:58)
[2018-02-02] MEDS ORDERED: LEVOFLOXACIN 500MG/D5W 100ML 100 ML IV SCH (15:00)
[2018-02-02] MEDS: TAMSULOSIN HCL 0.4 MG CAP PO SCH (21:27)
[2018-02-02] MEDS: ATORVASTATIN 20 MG TAB PO SCH (21:27)
[2018-02-02] MEDS: AZELASTINE HCL 137 MCG NASAL SPRAY NS SCH (21:27)
[2018-02-03] VITALS (7 sets, daily range): BP systolic 98–123; BP diastolic 53–59
[2018-02-03] MEDS: DUTASTERIDE 0.5 MG CAP PO SCH (08:35)
[2018-02-03] MEDS: FLUTICASONE PROPIONATE NASAL SPRAY NS SCH (08:35)
[2018-02-03] MEDS: ATENOLOL 50 MG TAB PO SCH (08:36)
--- NOTE | 2018-02-03 12:13 | Discharge Summary ---
PRIMARY CARE DOCTOR: Keli Beckman MD, at [facility]. FINAL DIAGNOSIS: Hematuria due to pansensitive pseudomonas prostatitis and also urinary tract infection. SECONDARY DIAGNOSES 1. Prostate enlargement. 2. Atrial fibrillation. 3. Chronic blood loss anemia. 4. Coronary artery disease. 5. Stage-3 chronic kidney disease. PLATE SHOP HELPER: Dr. Solo, urology. PROCEDURES/STUDIES PERFORMED 1. CT of the abdomen and pelvis which showed bladder diverticulum. 2. Transurethral resection of the prostate. HISTORY: Per [facility]. HOSPITAL COURSE: The patient was admitted. Urine culture grew pansensitive pseudomonas. The patient was kept on Levaquin renally adjusted. His hematuria recurred, which necessitated TURP, transurethral resection of the prostate. Initially postop, the patient did well. However, despite bladder irrigation, the patient still is having hematuria and bladder spasm. At this time, per urology's recommendations, we will teach him how to do bladder irrigation at home. Home health will be set up. The patient will also follow up with [facility] urologist as soon as possible. He has been seeing Dr. Mazariegos, [facility] urologist, for checking urine. At this time, I have also instructed to continue to hold his aspirin and Eliquis until cleared by his urologist. The benefits and risks of holding Eliquis have been explained in detail to the patient and his . The patient was seen and examined today. It took 35 minutes to discharge this patient. CONDITION ON DISCHARGE: Improved. DISCHARGE MEDICATIONS: Please see medication reconciliation form. BRADLEY JOHNSON M.D. Job#: [id number] cc:KELI BECKMAN MD
[2018-02-03] MEDS: BELLADONNA/OPIUM 60 MG SUPP PR PRN (12:36)
[2018-02-03 14:41] LABS: BASOPHILS % 0.4 % (0.0-1.0); EOSINOPHILS # (AUTO) 0.2 (0.0-0.4); EOSINOPHILS % 2.8 % (0.0-6.0); HEMATOCRIT 28.6 % (38.2-49.6); HEMOGLOBIN 9.5 g/dL (14.0-18.0); LYMPHOCYTES # (AUTO) 1.2 (1.0-3.2); LYMPHOCYTES % 15.3 % (18.0-39.1); MEAN CORPUSCULAR HGB CONC 33.2 g/dL (31-35); MEAN CORPUSCULAR VOLUME 93.5 fL (81-99); MONOCYTES # (AUTO) 0.4 (0.2-0.8); MONOCYTES % 5.5 % (4.4-11.3); NEUTROPHILS # (AUTO) 6.1 (2.1-6.9); NEUTROPHILS % 75.7 % (38.7-80.0); PLATELET COUNT 178 x10e3/uL (140-360); RED BLOOD COUNT 3.06 x10e6/uL (4.3-5.7); RED CELL DISTRIBUTION WIDTH 13.2 % (11.7-14.4)
[2018-02-03] MEDS ORDERED: PYRIDIUM100 MG (14:43)
[2018-02-03] MEDS ORDERED: TYLENOL WITH C1 EACH PO (14:45)
[2018-02-03] MEDS ORDERED: LEVAQUIN500 MG PO (14:46)
--- NOTE | 2018-03-16 22:50 | Operative Report ---
DATE OF PROCEDURE: January 28, 2018 PREOPERATIVE DIAGNOSIS: Severely obstructing BPH. POSTOPERATIVE DIAGNOSIS: Severely obstructing BPH. OPERATION PERFORMED: Transurethral resection of the median lobe of the prostate utilizing the plasma button electrode. ANESTHESIA: General. COMPLICATIONS: None. CLINICAL SUMMARY: Moses Khan Jr., is an 82-year-old man with severely obstructing BPH causing gross hematuria. He is brought to the operating room today to manage this bleeding, obstructing median lobe that is intravesical. He is aware of the risks of bleeding, infection, injury to adjacent structures, incontinence, impotence, retrograde ejaculation, need for additional procedures, and elected to proceed. OPERATIVE PROCEDURE IN DETAIL: Informed consent was verified. Moses Khan was properly identified, taken to the operating room, placed on the cystoscopy table in supine position. Anesthesia was uneventfully begun. Patient was then carefully and gently re-positioned in the dorsal lithotomy position with all pressure points well padded. His genitalia were prepared and draped in usual sterile fashion. The resectoscope sheath was inserted into the patient's urethra with a visual obturator. We utilized the plasma button electrode. The patient's huge intravesical median lobe was progressively vaporized utilizing the plasma button electrode. We vaporized the entire median lobe. This was a rather lengthy process as this median lobe was extremely large. At the end of the elimination of the median lobe, we coagulated its base and ensured excellent hemostasis. The patient's lateral lobes were left alone. They did not seem extremely obstructing at this point. This was a fairly lengthy procedure for a median lobe only resection and therefore we hope that elimination of the median lobe would allow the patient to appropriately drain. It should be noted that we never visualized the right ureteral orifice. Again, we were able to visualize the left ureteral orifice, but the right ureteral orifice was never visualized just as it was never visualized during the first cystoscopy that we performed 4 days earlier. The cystoscope was withdrawn. Continuous irrigation Breaux catheter was placed. It was irrigated to and fro to ensure it worked properly. The patient was then uneventfully reversed from anesthesia and taken to the recovery room in stable condition. There were no complications of the procedure. He tolerated the procedure well. Explicit postop instructions were left and will follow the patient up during his hospital course. Plans will be to re-assess the patient's voiding objectively following removal of his Breaux catheter on a long-term basis as an outpatient. He may need in a staged fashion additional transurethral resection of the lateral lobes of the prostate. Job#: [id number] CF MTDD
--- NOTE | 2018-03-16 22:51 | Operative Report ---
DATE OF PROCEDURE: January 24, 2018 PREOPERATIVE DIAGNOSES: 1. Gross hematuria. 2. Preputial adhesions. POSTOPERATIVE DIAGNOSES: 1. Gross hematuria. 2. Preputial adhesions. 3. Bladder diverticulum. OPERATIONS PERFORMED: 1. Cystourethroscopy with left ureteral catheterization and retrograde ureteropyelography (separate procedure performed for the gross hematuria). 2. Complicated urethral catheterization (separate procedure performed due to the bladder diverticulum, and made complicated by the bladder diverticulum). 3. Interpretation of retrograde ureteropyelography. 4. Interpretation of cystography. 5. Supervision of fluoroscopy, no radiologist present. 6. Release of preputial adhesions (separate procedure performed for the preputial adhesions). ANESTHESIA: General. COMPLICATIONS: None. CLINICAL SUMMARY: Moses Khan Jr. is an 82-year-old man with the above preoperative diagnoses. He is brought for the above procedures. He is aware of the risks of bleeding, infection, injury to adjacent structures, need for additional procedures, and elected to proceed. OPERATIVE PROCEDURE IN DETAIL: Informed consent was verified. Moses Khan Jr. was properly identified, taken to the operating room, and placed on the cystoscopy table in supine position. Anesthesia was uneventfully begun. The patient was then carefully and gently repositioned in a dorsal lithotomy position with all pressure points well padded. His genitalia were prepared and draped in usual sterile fashion. The 22.5-Serbian cystoscope sheath with the visual obturator in place was atraumatically inserted into the patient's urethra. It was guided down the unremarkable urethra, through the normal sphincteric region, through the prostate bed, which was significant for severely obstructive BPH with adhesions between the lateral lobes and a massive, intravesical, median lobe. We entered the patient's bladder where panendoscopy revealed bladder diverticula. Panendoscopy did not reveal any suspicious mucosal lesions. We identified the left ureteral orifice. We could not identify the right ureteral orifice. We managed to get a ureteral catheter abutting the left ureteral orifice and retrograde partial ureterograms were performed. Complete ureteropyelography could not be accomplished due to almost immediate extravasation near the ureteral orifice. Interpretation of retrograde ureteropyelography: Contrast was instilled in retrograde fashion via the left ureter. Only the distal portion of the left ureter was opacified. The cystoscope was withdrawn. A Breaux catheter was then placed. The balloon was inflated with sterile water. Contrast was then injected performing cystography. Interpretation of cystography: Contrast was injected in retrograde fashion via the Breaux catheter. There was a filling defect in the bladder corresponding to the large BPH that was growing into the patient's bladder. There were diverticular changes of the bladder that were noted. Vesicoureteric reflux could not be associated. The patient's bladder was drained of contrast. It was irrigated to and fro to ensure it worked properly. We then released the patient's dense preputial adhesions until the entire devi of the glans penis was exposed. The patient was then uneventfully reversed from anesthesia and taken to recovery room in stable condition. There were no complications to the procedure. He tolerated the procedure well. Explicit postop instructions were given. Will follow the patient up during this hospitalization and determine whether additional procedures are needed. Job#: [id number] DR [id number]
== END 2018-02-03 18:35 | disposition home health service (06) | DRG 709 ==
LOC: ER 20:03 → ERHOLD 01-21 00:56 → MED/SURG 01-21 15:40 → OBSVTOIN 01-23 13:52
PROVIDERS: ADMIT Internal Medicine; ATTEND Internal Medicine
PROC: 0VN Male Reproductive System, Release (ICD-10-PCS; 2018-01-24)
PROC: BT1F1ZZ Fluoroscopy of Left Kidney, Ureter and Bladder using Low Osmolar Contrast (ICD-10-PCS; 2018-01-24)
PROC: 0TH Urinary System, Insertion (ICD-10-PCS; 2018-01-24)
PROC: 0V508ZZ Destruction of Prostate, Via Natural or Artificial Opening Endoscopic (ICD-10-PCS; principal; 2018-01-28 07:00)
DX: N41.0 Acute prostatitis (principal); N30.01 Acute cystitis with hematuria; N17.9 Acute kidney failure, unspecified; N13.8 Other obstructive and reflux uropathy; B96.5 Pseudomonas (aeruginosa) (mallei) (pseudomallei) as the cause of diseases classified elsewhere; I12.9 Hypertensive chronic kidney disease with stage 1 through stage 4 chronic kidney disease, or unspecified chronic kidney disease; N18.3 Chronic kidney disease, stage 3 (moderate); N32.3 Diverticulum of bladder; Z87.442 Personal history of urinary calculi; E78.5 Hyperlipidemia, unspecified; I48.91 Unspecified atrial fibrillation; Z95.1 Presence of aortocoronary bypass graft; Z95.2 Presence of prosthetic heart valve; Z88.8 Allergy status to other drugs, medicaments and biological substances; Z79.01 Long term (current) use of anticoagulants; D69.6 Thrombocytopenia, unspecified; Z79.82 Long term (current) use of aspirin; I25.10 Atherosclerotic heart disease of native coronary artery without angina pectoris; E78.00 Pure hypercholesterolemia, unspecified; N40.1 Benign prostatic hyperplasia with lower urinary tract symptoms; N47.5 Adhesions of prepuce and glans penis; R42 Dizziness and giddiness; I95.9 Hypotension, unspecified; D50.0 Iron deficiency anemia secondary to blood loss (chronic)
CPT/HCPCS: 36415; 74176; 74420; 80048; 80053; 81001; 83540; 83605; 83735; 84100; 84443; 84466; 85025; 85610; 85730; 86850; 86900; 87086; 87186; 93005; 99284; G0378; J0696; J1100; J1956; J2001; J2270; J2405; J7030; J7050